=== PATIENT | female | born 1950 | race Caucasian/White ===

== ENCOUNTER 2019-01-15 11:02 | Emergency (ER) | payer MEDICARE, OTHER ==
--- NOTE | 2019-01-15 12:30 | ED Physician Documentation ---
History of Present Illness - Stated complaint Stated Complaint: CHEST PRESSURE, SOA, NO APPETITE, WEIGHT LOSS - Chief complaint Chief Complaint: Cardiac - History obtained from History obtained from: Patient, Family - History of Present Illness Pain level max: 5 Pain level now: 3 Improved by: nothing Worsened by: nothing - Additonal information Additional information: 68-year-old female with a history of depression and anxiety, recently felt that her Cymbalta was not working so her doctor changed her to Prozac 2 weeks ago. Shortly after this her granddaughter killed herself in an overdose. She returned home from the 2 days ago and since that time has felt a heaviness and pressure on her chest. She does not have any difficulty breathing. Nothing makes it better or worse. Has not had any leg pain. Does not smoke. Review of Systems Ten Systems: 10 systems reviewed and negative Constitutional: denies: Fever, Chills Nose: denies: Rhinorrhea / runny nose, Congestion Respiratory: denies: Cough GI: denies: Nausea, Vomiting Skin: denies: Rash Musculoskeletal: denies: Neck pain, Back pain Neurologic: denies: Focal weakness, Numbness, Headache Psychiatric: reports: Depressed, Anxiety. denies: Suicidal, Homicidal PD PAST MEDICAL HISTORY - Past Medical History Past Medical History: Yes Psych: Depression, Anxiety Other Past Medical History: RLS - Present Medications Home Medications: Ambulatory Orders Medication Instructions Recorded Confirmed Fluoxetine HCl [Prozac] 40 mg PO 01/15/19 Gabapentin [Neurontin] 100 mg PO TID 01/15/19 01/15/19 LORazepam [Ativan] 0.5 mg PO Q8H PRN #7 tablet 01/15/19 Meloxicam 7.5 mg PO 01/15/19 Zolpidem [Ambien] 5 mg PO 01/15/19 - Allergies Allergies/Adverse Reactions: Allergies Allergy/AdvReac Type Severity Reaction Status Date / Time No Known Drug Allergies Allergy Verified 01/15/19 11:15 - Social History Does the pt smoke?: No Smoking Status: Never smoker PD ED PE NORMAL - Vitals Vital signs reviewed: Yes - General General: Alert and oriented X 3, No acute distress, Well developed/nourished - HEENT HEENT: PERRL, Moist mucous membranes, Pharynx benign - Neck Neck: Supple, no meningeal sign - Cardiac Cardiac: RRR, Strong equal pulses - Respiratory Respiratory: No respiratory distress, Clear bilaterally - Abdomen Abdomen: Soft, Non tender, Non distended - Derm Derm: Warm and dry, No rash - Extremities Extremities: No edema, No calf tenderness / cord - Neuro Neuro: Alert and oriented X 3 - Psych Psych: Normal mood, Normal affect Results - Vitals Vitals: Vital Signs - 24 hr 01/15/19 01/15/19 01/15/19 11:13 13:15 13:28 Temperature 36.8 C 36.5 C Heart Rate 110 H 89 87 Respiratory 18 17 18 Rate Blood Pressure 147/80 H 132/107 H 132/107 H O2 Saturation 100 99 97 01/15/19 14:23 Temperature 36.5 C Heart Rate 96 Respiratory 16 Rate Blood Pressure 140/79 H O2 Saturation 97 Oxygen O2 Source Room air - EKG (time done) 1114 Rate: Rate (enter#) (106) Rhythm: Sinus tachycardia, Other (PVCs frequent) [place]: Normal Intervals: Normal MS QRS: Normal Ischemia: Normal ST segments - Labs Labs: Laboratory Tests 01/15/19 01/15/19 01/15/19 12:20 12:20 12:20 WBC 8.3 RBC 4.84 Hgb 14.8 Hct 41.7 MCV 86.2 MCH 30.5 MCHC 35.4 RDW 13.3 Plt Count 351 MPV 6.8 L Neut # (Auto) 6.9 H Lymph # (Auto) 1.0 L [place] # (Auto) 0.4 Eos # (Auto) 0.0 Baso # (Auto) 0.1 Absolute Nucleated RBC 0.00 Nucleated RBC % 0.0 D-Dimer Sodium 134 L Potassium 3.7 Chloride 96 L Carbon Dioxide 26 Anion Gap 12.0 BUN 10 Creatinine 0.6 Estimated GFR (MDRD) 100 Glucose 123 H Calcium 9.6 Phosphorus 3.3 Magnesium 2.1 Total Bilirubin 1.0 AST 24 ALT 15 Alkaline Phosphatase 65 Troponin I < 0.04 Total Protein 7.8 Albumin 4.6 Globulin 3.2 Albumin/Globulin Ratio 1.4 Lipase 36 TSH Salicylates < 6.0 Acetaminophen 28 Ethyl Alcohol < 5.0 01/15/19 01/15/19 12:20 12:20 WBC RBC Hgb Hct MCV MCH MCHC RDW Plt Count MPV Neut # (Auto) Lymph # (Auto) [place] # (Auto) Eos # (Auto) Baso # (Auto) Absolute Nucleated RBC Nucleated RBC % D-Dimer 313.8 H Sodium Potassium Chloride Carbon Dioxide Anion Gap BUN Creatinine Estimated GFR (MDRD) Glucose Calcium Phosphorus Magnesium Total Bilirubin AST ALT Alkaline Phosphatase Troponin I Total Protein Albumin Globulin Albumin/Globulin Ratio Lipase TSH 2.30 Salicylates Acetaminophen Ethyl Alcohol - Rads (name of study) cxr Radiology: Prelim report reviewed, EMP read contemporaneously, See rad report (No acute abnormality) PD MEDICAL DECISION MAKING - ED course Complexity details: reviewed results, re-evaluated patient, considered differential (No ST elevation MT, no aortic dissection, no PE, no tension pneumothorax, no aortic aneurysm), d/w patient, d/w family, d/w [facility] consultant ED course: 68-year-old female presents to the emergency department with atypical chest pain. This been constant for the past 2-3 days. Seems to be associated with grief. Symptoms resolved with Ativan. She did have recent travel, but her d- dimer is less than her age-adjusted cut off and has no calf tenderness. No pleuritic chest pain. No hypoxia. Social work was consulted and the patient was given resources for outpatient counseling. She is comfortable with this plan. Not suicidal or homicidal. Patient and family counseled regarding signs and symptoms for which I believe and urgent re-evaluation would be necessary. Patient with good understanding of and agreement to plan and is comfortable going home at this time This document was made in part using voice recognition software. While efforts are made to proofread this document, sound alike and grammatical errors may occur. Departure - Departure Disposition: 01 Home, Self Care Clinical Impression: Depression Qualifiers: Depression Type: unspecified Qualified Code(s): F32.9 - Major depressive disorder, single episode, unspecified Condition: Good Instructions: ED Depression Follow-Up: Isael Dewey MD [Primary Care Provider] - 01/17/19 Prescriptions: LORazepam [Ativan] 0.5 mg PO Q8H PRN #7 tablet PRN Reason: Anxiety Comments: Follow-up with your doctor for further care. Have him refer you to a psychologist and a psychiatrist. Return if you worsen crisis Line and is available to talk to someone [email or web address] is also available to chat with someone online if you prefer. There are also many resources on this website and apps for your phone to help with your mental health You can also text the word START to [phone] to chat with someome via text. Discharge Date/Time: 01/15/19 14:23
[2019-01-15] MEDS ORDERED: LORazepam 2 MG/ML VIAL IVP STA (12:32)
[2019-01-15 12:36] LABS: BASOPHILS # (AUTO) 0.1 10^3/uL (0.0-0.1); BASOPHILS % (AUTO) 0.9 %; HGB - HEMOGLOBIN 14.8 g/dL (12.0-16.0); MEAN CORPUSCULAR HEMOGLOBIN 30.5 pg (27.0-31.0); MEAN CORPUSCULAR HGB CONC 35.4 g/dL (32.0-36.0); MEAN CORPUSCULAR VOLUME 86.2 fL (81.0-99.0); MEAN PLATELET VOLUME 6.8 fL (7.9-10.8); MONOCYTES # (AUTO) 0.4 10^3/uL (0.0-1.0); MONOCYTES % (AUTO) 4.2 %; NEUTROPHILS # (AUTO) 6.9 10^3/uL (1.5-6.6); NEUTROPHILS % (AUTO) 82.9 %; PLT - PLATELET COUNT 351 10^3/uL (130-450); RED BLOOD COUNT 4.84 10^6/uL (4.20-5.40); RED CELL DISTRIBUTION WIDTH 13.3 % (12.0-15.0); WHITE BLOOD COUNT 8.3 x10^3/uL (4.8-10.8)
--- NOTE | 2019-01-15 12:51 | XRAY Report ---
Reason: Chest Pain Procedure Date: 01/15/2019 Accession Number: [id number] / [id number] Procedure: XR - Chest 1 View X-Ray CPT Code: 71969 FULL RESULT: EXAM: CHEST RADIOGRAPHY EXAM DATE: 01/15/2019 12:28 PM. CLINICAL HISTORY: Chest Pain. COMPARISON: None. TECHNIQUE: 1 view. FINDINGS: Lungs/Pleura: No focal opacities evident. No pleural effusion. No pneumothorax. Mediastinum: Within exam limitations, the cardiomediastinal contour is normal. Other: None. IMPRESSION: No focal consolidation. RADIA
[2019-01-15 12:58] LABS: ACETAMINOPHEN 28 ug/mL (10-30); ALBUMIN 4.6 g/dL (3.2-5.5); ALBUMIN/GLOBULIN RATIO 1.4 (1.0-2.2); ALKALINE PHOSPHATASE 65 IU/L (42-121); ALT ALANINE AMINOTRANSFERASE 15 IU/L (10-60); AST ASPARTATE AMINOTRANSFERASE 24 IU/L (10-42); BUN - BLOOD UREA NITROGEN 10 mg/dL (6-20); CALCIUM 9.6 mg/dL (8.5-10.3); CARBON DIOXIDE - CO2 26 mmol/L (21-32); CHLORIDE 96 mmol/L (101-111); CREATININE 0.6 mg/dL (0.4-1.0); GFR - MDRD 100 (>89); GLUCOSE 123 mg/dL (70-100); LIPASE 36 U/L (22-51); MAGNESIUM 2.1 mg/dL (1.7-2.8); PHOSPHORUS 3.3 mg/dL (2.5-4.6); SALICYLATE < 6.0 mg/dL; SODIUM 134 mmol/L (135-145); TOTAL PROTEIN 7.8 g/dL (6.7-8.2)
[2019-01-15 14:25] VITALS: BP 140/79
== END 2019-01-15 14:23 | disposition home or self-care (01) ==
LOC: ED 11:02
DX: F32.9 Major depressive disorder, single episode, unspecified (principal); Z79.899 Other long term (current) drug therapy
CPT/HCPCS: 36415; 71045; 80053; 83690; 83735; 84100; 84443; 84484; 85025; 85379; 93005; 96374; 99284; J2060; 80307; 80320; 80329

== ENCOUNTER 2019-08-31 09:52 | Outpatient (CLI) | payer MEDICARE, OTHER ==
--- NOTE | 2019-08-31 12:18 | Mammography Report ---
Reason: ROUTINE MAMMO Procedure Date: 08/31/2019 Accession Number: [id number] / [id number] Procedure: MGS - Screening Mammo Dig Bilat CPT Code: FULL RESULT: EXAM: Screening Mammo Dig Bilat DATE: 08/31/2019 10:17 AM CLINICAL HISTORY: Routine screening. No reported personal history of breast cancer. Family history breast cancer in an aunt age 70 and a cousin age 50. TECHNIQUE: (B) - Bilateral CC and MLO views were obtained. COMPARISON: 03/04/2016 PARENCHYMAL PATTERN: (A) - The breasts demonstrate scattered fibroglandular densities bilaterally. FINDINGS: Bilateral breasts: There are no suspicious masses, calcifications, or areas of distortion. IMPRESSION: Negative examination. BI-RADS category 1. RECOMMENDATION: (ANNUAL) - Recommend routine annual screening mammography. BI-RADS CATEGORY: (1) - Negative. STANDARD QUALIFYING STATEMENTS: 1. This examination was reviewed with the aid of Computer-Aided Detection (CAD). 2. A negative or benign imaging report should not preclude biopsy if clinically suspicious findings are present. 3. Dense breasts may obscure an underlying neoplasm. 4. This examination was reviewed without the aid of 3D breast imaging (tomosynthesis).
== END 2019-08-31 09:53 | disposition home or self-care (01) ==
LOC: DI.S 09:52
PROVIDERS: ATTEND Family Medicine
DX: Z12.31 Encounter for screening mammogram for malignant neoplasm of breast (principal)
CPT/HCPCS: 77067

== ENCOUNTER 2019-12-15 07:35 | Day surgery (SDC) | payer MEDICARE, OTHER ==
[~2019-12-15 07:35] MED LIST: BRIMONIDINE 0.2% OPHTH DROPS 5 ML ONE; BSS/LIDOCAINE/EPINEPHRINE 1 ML SYRINGE ONE; CYCLOPENTOLATE 1% OPHTH DROPS 2 ML ONE; KETOROLAC 0.45% OPHTH DROPS ONE; PHENYLEPHRINE 2.5% OPHTH 2 ML DROPS ONE; PROPARACAINE 0.5% OPHTH DROPS 15 ML ONE; TIMOLOL 0.5% OPHTH DROPS ONE; TRIAMCIN/MOXIFLOX OPHTHALMIC 0.6 ML VIAL IO ONE; VANCOMYCIN OPHTHALMI 8MG/0.8ML 8 MG/0.8 ML SYRINGE IO ONE
[2019-12-15] MEDS ORDERED: MIDAZOLAM 2 MG/2 ML VIAL IVP ONE (07:36)
[2019-12-15] MEDS ORDERED: LACTATED RINGERS 500 ML IV ONE ×2 (07:42→09:23)
[2019-12-15] MEDS ORDERED: CYCLOPENTOLATE 1% OPHTH DROPS 2 ML LEFTEYE ONE (07:55)
[2019-12-15] MEDS ORDERED: PROPARACAINE 0.5% OPHTH DROPS 15 ML LEFTEYE ONE ×2 (07:55→09:08)
[2019-12-15] MEDS ORDERED: PHENYLEPHRINE 2.5% OPHTH 2 ML DROPS LEFTEYE ONE (07:55)
[2019-12-15] MEDS ORDERED: KETOROLAC 0.45% OPHTH DROPS LEFTEYE ONE (07:55)
--- NOTE | 2019-12-15 08:57 | ANESTHESIA ---
Pre-Anesthesia VS, & Labs - Diagnosis Left senile combined cataract - Procedure Left phaco with IOL implant Vital Signs: Temp Pulse Resp BP Pulse Ox 36.6 C 90 16 149/88 H 99 12/15/19 07:51 12/15/19 07:51 12/15/19 07:51 12/15/19 07:51 12/15/19 07:51 Height 5 ft 1 in Weight (kg) 59.8 kg Body Mass Index 21.4 - NPO >8 hours - Is Patient ?: Not Applicable - Lab Results Lab results reviewed: No Home Medications and Allergies Home Medications: Ambulatory Orders Duloxetine HCl [Cymbalta] 12/14/19 Fluoxetine HCl [Prozac] 40 mg PO 01/15/19 Gabapentin [Neurontin] 100 mg PO TID 01/15/19 Meloxicam 7.5 mg PO 01/15/19 Zolpidem [Ambien] 5 mg PO 01/15/19 Duloxetine HCl [Cymbalta] 12/14/19 Allergies/Adverse Reactions: Allergies Allergy/AdvReac Type Severity Reaction Status Date / Time No Known Drug Allergies Allergy Verified 01/15/19 11:15 Anes History & Medical History - Anesthetic History Anesthesia Complications: reports: No previous complications Family history of Anesthesia Complications: Denies Family history of Malignant Hyperthermia: Denies - Medical History Cardiovascular: reports: Hypertension Pulmonary: reports: None Gastrointestinal: reports: None Urinary: reports: None Neuro: reports: None Musculoskeletal: reports: None Endocrine/Autoimmune: reports: None Blood Disorders: reports: None Skin: reports: Herpes zoster Smoking Status: Current every day smoker Psychosocial: reports: No issues indicated - Surgical History General: Appendectomy Gynecologic: section Orthopedic: Carpal Tunnel surgery Exam General: Alert, Oriented x3, Cooperative Dental: WNL Mouth Opening: Greater than 4 Fingerbreadths Neck Mobility: Normal Mallampati classification: I Thyromental Distance: greater than 6 cm Plan Anesthesia Type: MAC Consent for Procedure(s) Verified and Reviewed: Yes Code Status: Attempt Resuscitation ASA classification: 2-Mild systemic disease Is this case an emergency?: No
[2019-12-15] MEDS ORDERED: EPINEPHrine 1 MG/ML AMP IVP ONE (09:12)
[2019-12-15] MEDS ORDERED: BRIMONIDINE 0.2% OPHTH DROPS 5 ML OPTH ONE (09:12)
[2019-12-15] MEDS ORDERED: TIMOLOL 0.5% OPHTH DROPS OPTH ONE (09:12)
[2019-12-15] MEDS ORDERED: CHONDR SULF/HYALURONATE SYRINGE IO ONE (09:12)
[2019-12-15] MEDS ORDERED: BSS/LIDOCAINE/EPINEPHRINE 1 ML SYRINGE IO ONE (09:13)
[2019-12-15 09:49] VITALS: BP 106/64
--- NOTE | 2019-12-15 10:48 | OPERATIVE REPORT ---
DATE OF SERVICE: 12/15/2019 Physician: Albert Wyman MD PREOPERATIVE DIAGNOSIS: Visually significant cataract, left eye. This was her first cataract surger y. POSTOPERATIVE DIAGNOSIS: Visually significant cataract, left eye. This was her first cataract surge ry. DESCRIPTION OF PROCEDURE: Phacoemulsification with posterior chamber intraocular lens implant, left eye. SURGEON: Albert Wyman MD ANESTHESIA: Monitored anesthesia care. COMPLICATIONS: None. OPERATIVE INDICATIONS: This is a 69-year-old woman with progressive vision loss in the left eye due to 4+ nuclear sclerotic cataract. Best corrected visual acuity was 20/50, with glare to 20/400 in th e left eye. She was consented at length concerning risks and benefits of cataract surgery, after whi ch she expressed a desire to proceed with surgery. OPERATIVE PROCEDURE: Patient was taken to OR #3 and placed under monitored anesthesia care. Surgica l timeout was conducted confirming correct patient, correct procedure, and correct surgical site. e was given topical anesthesia, then prepped and draped in the usual sterile fashion. The eye was en tered at the 6 and 3 o'clock positions. Intracameral Shugarcaine was injected into the anterior janelle kathy, followed by Viscoat. A continuous-tear curvilinear capsulorrhexis was performed. The nucleus w as hydrodissected and phacoemulsified. The cortex was evacuated using automated infusion and aspirat ion. Provisc was injected in the capsular bag, and a 21.5 diopter intraocular lens inserted in the b ag. I and A was used to evacuate the viscoelastic materials. The eye was inflated to physiologic pr essure using balanced salt solution and found to be watertight. Approximately 0.25 mL of a mixture o f triamcinolone and moxifloxacin was injected transsclerally into the vitreous in the inferotemporal quadrant. An additional 0.55 mL of a mixture of triamcinolone, moxifloxacin and vancomycin was injec emelina subconjunctivally in the superior quadrant for infection and inflammation prophylaxis. Wound int egrity was checked with Weck-Dixie sponges. Patient was taken from the operating room in good conditio n and given postoperative instructions. TD: 12/15/2019 09:26
== END 2019-12-15 07:36 | disposition home or self-care (01) ==
LOC: SDS 07:35
PROVIDERS: ATTEND Ophthalmology
PROC: 08RK3JZ Replacement of Left Lens with Synthetic Substitute, Percutaneous Approach (ICD-10-PCS; principal; 2019-12-15 09:00)
DX: H25.12 Age-related nuclear cataract, left eye (principal); I10 Essential (primary) hypertension; F17.200 Nicotine dependence, unspecified, uncomplicated
CPT/HCPCS: 66984; A9270; J3490; V2632

== ENCOUNTER 2020-01-05 08:04 | Day surgery (SDC) | payer MEDICARE, OTHER ==
[~2020-01-05 08:04] MED LIST changes: -BRIMONIDINE 0.2% OPHTH DROPS 5 ML ONE; -BSS/LIDOCAINE/EPINEPHRINE 1 ML SYRINGE ONE; -TIMOLOL 0.5% OPHTH DROPS ONE; -TRIAMCIN/MOXIFLOX OPHTHALMIC 0.6 ML VIAL IO ONE; -VANCOMYCIN OPHTHALMI 8MG/0.8ML 8 MG/0.8 ML SYRINGE IO ONE
--- NOTE | 2020-01-05 09:24 | ANESTHESIA ---
Pre-Anesthesia VS, & Labs - Diagnosis R nuclear sclerotic cataract - Procedure R extraction cataract w/IOL Height 5 ft 1 in Body Mass Index 21.4 - NPO >8 hours - Is Patient ?: No Home Medications and Allergies Fluoxetine HCl [Prozac] 40 mg PO 01/15/19 Gabapentin [Neurontin] 100 mg PO TID 01/15/19 Meloxicam 7.5 mg PO 01/15/19 Zolpidem [Ambien] 5 mg PO 01/15/19 Duloxetine HCl [Cymbalta] 12/14/19 Allergies/Adverse Reactions: Allergies Allergy/AdvReac Type Severity Reaction Status Date / Time Penicillins AdvReac Rash Verified 01/05/20 09:46 Anes History & Medical History - Anesthetic History Anesthesia Complications: reports: No previous complications Family history of Anesthesia Complications: Denies Family history of Malignant Hyperthermia: Denies - Medical History Cardiovascular: reports: Hypertension Pulmonary: reports: None Gastrointestinal: reports: None Urinary: reports: None Neuro: reports: None Musculoskeletal: reports: None Endocrine/Autoimmune: reports: None Blood Disorders: reports: None Skin: reports: Herpes zoster Smoking Status: Current every day smoker Psychosocial: reports: Anxiolytic (daily Ativan) - Surgical History General: Appendectomy, Colonoscopy Gynecologic: section Orthopedic: Carpal Tunnel surgery Exam General: Alert, Oriented x3, Cooperative Dental: WNL Mouth Openin Fingerbreadth Neck Mobility: Normal Mallampati classification: II Thyromental Distance: 4-6 cm Respiratory: Lungs clear, Normal breath sounds, No respiratory distress Cardiovascular: Regular rate Mental/Cognitive Status: Alert/Oriented X3, Normal for patient Cognitive Status: Within normal limits Plan Anesthesia Type: General (backup), MAC (pt stated she would like more medication than what she had for L cataract (Versed 4mg)) Consent for Procedure(s) Verified and Reviewed: Yes Code Status: Attempt Resuscitation ASA classification: 2-Mild systemic disease Is this case an emergency?: No
[2020-01-05] MEDS ORDERED: LACTATED RINGERS 500 ML IV ONE (10:00)
[2020-01-05] MEDS ORDERED: MIDAZOLAM 2 MG/2 ML VIAL IVP ONE (10:30)
[2020-01-05] MEDS ORDERED: fentaNYL 100 MCG/2 ML VIAL IVP ONE (10:30)
[2020-01-05] MEDS ORDERED: EPINEPHrine 1 MG/ML AMP IVP ONE (10:40)
[2020-01-05] MEDS ORDERED: BRIMONIDINE 0.2% OPHTH DROPS 5 ML OPTH ONE (10:40)
[2020-01-05] MEDS ORDERED: BSS/LIDOCAINE/EPINEPHRINE 1 ML SYRINGE IO ONE (10:41)
[2020-01-05] MEDS ORDERED: TIMOLOL 0.5% OPHTH DROPS OPTH ONE (10:41)
[2020-01-05] MEDS ORDERED: CHONDR SULF/HYALURONATE SYRINGE IO ONE (10:41)
[2020-01-05] MEDS ORDERED: VANCOMYCIN OPHTHALMI 8MG/0.8ML 8 MG/0.8 ML SYRINGE IO ONE (10:42)
[2020-01-05] MEDS ORDERED: TRIAMCIN/MOXIFLOX OPHTHALMIC 0.6 ML VIAL IO ONE ×2 (10:42→14:56)
[2020-01-05] MEDS ORDERED: PROPARACAINE 0.5% OPHTH DROPS 15 ML RIGHTEYE ONE (10:42)
[2020-01-05 11:14] VITALS: BP 124/65
--- NOTE | 2020-01-05 12:53 | OPERATIVE REPORT ---
DATE OF SERVICE: 01/05/2020 Physician: Albert Wyman MD PREOPERATIVE DIAGNOSIS: Visually significant cataract, right eye. Cataract surgery was performed on the left eye on 12/15/2019. POSTOPERATIVE DIAGNOSIS: Visually significant cataract, right eye. Cataract surgery was performed o n the left eye on 12/15/2019. PROCEDURE: Phacoemulsification with posterior chamber intraocular lens implant, right eye. SURGEON: Albert Wyman MD ANESTHESIA: Monitored anesthesia care. COMPLICATIONS: None. OPERATIVE INDICATIONS: This is a 69-year-old woman with progressive vision loss in the right eye due to 4+ nuclear sclerotic cataract. Best corrected visual acuity was 20/30, with glare to 20/250 in t he right eye. Indications for surgery were overall decrease in vision, difficulty seeing words on a computer screen, difficulty reading, difficulty seeing words, closed caption or game scores on TV, di fficulty seeing street signs, difficulty driving in low light or at night, difficulty driving at [facility] t because of headlights from other vehicles, and difficulty with glare or bright lights in any situat ion. She was consented at length concerning risks and benefits of cataract surgery, after which she expressed a desire to proceed with surgery. OPERATIVE PROCEDURE: The patient was taken to OR number 3 and placed under monitored anesthesia care . A surgical timeout was conducted confirming correct patient, correct procedure, and correct surgic al site. She was given topical anesthesia, and prepped and draped in the usual sterile fashion. The eye was entered at the 12 and 9 o'clock positions. Intracameral Shugarcaine was injected into the a nterior chamber, followed by Viscoat. A continuous-tear curvilinear capsulorrhexis was performed. T he nucleus was hydrodissected and phacoemulsified. The cortex was evacuated using automated infusion and aspiration. Provisc was injected in the capsular bag, and a 19.5 diopter intraocular lens inser emelina in the bag. Infusion and aspiration was used to evacuate the viscoelastic materials. The eye wa s inflated to physiologic pressure using balanced salt solution and found to be watertight. Approxim ately 0.25 mL of a mixture of triamcinolone and moxifloxacin was injected and trans sclerally into th e vitreous in inferotemporal quadrant. An additional 0.55 mL of a mixture of triamcinolone, moxiflox acin and vancomycin was injected subconjunctivally in the superior quadrant for infection and inflamm ation prophylaxis. Wound integrity was checked with Weck-Dixie sponges. The patient was taken from [facility] operating room in good condition and given postoperative instructions. TD: 01/05/2020 10:55
[2020-01-05] MEDS ORDERED: BRIMONIDINE 0.2% OPHTH DROPS 5 ML ONE (14:56)
== END 2020-01-05 08:05 | disposition home or self-care (01) ==
LOC: SDS 08:04
PROVIDERS: ATTEND Ophthalmology
DX: H25.11 Age-related nuclear cataract, right eye (principal); Z98.42 Cataract extraction status, left eye; I10 Essential (primary) hypertension; F17.210 Nicotine dependence, cigarettes, uncomplicated
CPT/HCPCS: 66984; A9270; J3490; V2632

== ENCOUNTER 2020-03-07 16:49 | Emergency (ER) | payer MEDICARE, OTHER ==
[2020-03-07 17:33] LABS: MUDS CUTOFF CONCENTRATIONS CUTOFF CONC BELOW:
[2020-03-07 17:35] LABS: BILIRUBIN,URINE NEGATIVE (NEGATIVE); GLUCOSE, URINE (UA) NEGATIVE (NEGATIVE); KETONES,URINE (UA) NEGATIVE (NEGATIVE); LEUKOCYTE ESTERASE, URINE NEGATIVE (NEGATIVE); NITRITE,URINE NEGATIVE (NEGATIVE); OCCULT BLOOD,URINE TRACE-INTA (NEGATIVE); PROTEIN,URINE NEGATIVE (NEGATIVE); UROBILINOGEN,URINE 0.2 (NORMAL) E.U./dL (NORMAL)
[2020-03-07 17:36] LABS: CLARITY,URINE CLEAR (CLEAR)
[2020-03-07 17:40] LABS: BASOPHILS # (AUTO) 0.1 10^3/uL (0.0-0.1); BASOPHILS % (AUTO) 0.7 %; EOSINOPHILS # (AUTO) 0.3 10^3/uL (0.0-0.7); EOSINOPHILS % (AUTO) 3.5 %; HGB - HEMOGLOBIN 13.6 g/dL (12.0-16.0); LYMPHOCYTES # (AUTO) 2.3 10^3/uL (1.5-3.5); LYMPHOCYTES % (AUTO) 32.2 %; MEAN CORPUSCULAR HEMOGLOBIN 28.9 pg (27.0-31.0); MEAN CORPUSCULAR HGB CONC 32.3 g/dL (32.0-36.0); MEAN CORPUSCULAR VOLUME 89.6 fL (81.0-99.0); MEAN PLATELET VOLUME 8.4 fL (7.9-10.8); MONOCYTES # (AUTO) 0.6 10^3/uL (0.0-1.0); MONOCYTES % (AUTO) 8.5 %; NEUTROPHILS # (AUTO) 3.8 10^3/uL (1.5-6.6); NEUTROPHILS % (AUTO) 54.4 %; PLT - PLATELET COUNT 353 10^3/uL (130-450); RED CELL DISTRIBUTION WIDTH 12.6 % (12.0-15.0); WHITE BLOOD COUNT 7.1 x10^3/uL (4.8-10.8)
--- NOTE | 2020-03-07 17:40 | ED Physician Documentation ---
PD HPI MHE - Stated complaint Stated Complaint: TIRED - Chief complaint Chief Complaint: MHE - History obtained from History obtained from: Patient - History of Present Illness Primary symptom: Other (69-year-old woman brought in by private vehicle. Reportedly for the last 6 days has had intermittent hallucinations where she sees her mother. She is also been falling a lot without injury. She complains of joint aches. Denies suicidal or homicidal ideation. Has been sleeping poorly and seems disoriented.) Review of Systems Ten Systems: 10 systems reviewed and negative Constitutional: denies: Fever, Chills Throat: denies: Sore throat Cardiac: denies: Chest pain / pressure, Palpitations Respiratory: denies: Dyspnea, Cough GI: denies: Abdominal Pain, Nausea, Vomiting PD PAST MEDICAL HISTORY - Past Medical History Cardiovascular: Hypertension Respiratory: None Neuro: None Endocrine/Autoimmune: None GI: None : None HEENT: Other Psych: Depression, Anxiety, Panic attacks Musculoskeletal: None Derm: Herpes zoster - Past Surgical History General: Appendectomy, Colonoscopy Ortho: 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 - Present Medications Home Medications: Ambulatory Orders Medication Instructions Recorded Confirmed Fluoxetine HCl [Prozac] 40 mg PO DAILY 01/15/19 01/05/20 Gabapentin [Neurontin] 100 mg PO TID 01/15/19 01/05/20 LORazepam [Ativan] 0.5 mg PO Q8H PRN #7 tablet 01/15/19 01/05/20 Meloxicam 7.5 mg PO DAILY 01/15/19 01/05/20 Zolpidem [Ambien] 5 mg PO DAILY 01/15/19 01/05/20 Duloxetine HCl [Cymbalta] 60 mg PO DAILY 12/14/19 01/05/20 - Allergies Allergies/Adverse Reactions: Allergies Allergy/AdvReac Type Severity Reaction Status Date / Time Penicillins AdvReac Rash Verified 03/07/20 17:03 - Social History Does the pt smoke?: No Smoking Status: Current every day smoker PD ED PE NORMAL - Vitals Vital signs reviewed: Yes - General General: No acute distress, Other (She is alert and seems to be a fairly cogent historian but when asked her the date she says it is June 12, 2021.) - HEENT HEENT: PERRL, EOMI, Other (Dry mucous membranes) - Neck Neck: Supple, no meningeal sign, No bony TTP - Cardiac Cardiac: RRR, No murmur - Respiratory Respiratory: No respiratory distress, Clear bilaterally - Abdomen Abdomen: Normal bowel sounds, Soft, Non tender - Back Back: No CVA TTP, No spinal TTP - Derm Derm: Normal color, Warm and dry - Extremities Extremities: No deformity, No tenderness to palpate, No edema, No calf tenderness / cord - 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, No motor deficit, No sensory deficit Eye Opening: Spontaneous Motor: Obeys Commands Verbal: Confused GCS Score: 14 - Psych Psych: Normal mood, Normal affect Results - Vitals Vitals: Vital Signs - 24 hr 03/07/20 03/08/20 03/08/20 17:03 02:22 08:10 Temperature 36.6 C Heart Rate 77 76 72 Respiratory 18 15 16 Rate Blood Pressure 137/63 H 122/69 116/64 O2 Saturation 97 96 96 Oxygen O2 Source Room air - Labs Labs: Laboratory Tests 03/07/20 03/07/20 03/07/20 17:20 17:33 17:33 WBC 7.1 RBC 4.70 Hgb 13.6 Hct 42.1 MCV 89.6 MCH 28.9 MCHC 32.3 RDW 12.6 Plt Count 353 MPV 8.4 Neut # (Auto) 3.8 Lymph # (Auto) 2.3 [place] # (Auto) 0.6 Eos # (Auto) 0.3 Baso # (Auto) 0.1 Absolute Nucleated RBC 0.00 Nucleated RBC % 0.0 Sodium 135 Potassium 3.7 Chloride 99 L Carbon Dioxide 29 Anion Gap 7.0 BUN 17 Creatinine 0.8 Estimated GFR (MDRD) 71 L Glucose 95 Calcium 9.1 Total Bilirubin 0.2 AST 17 ALT 13 Alkaline Phosphatase 54 Total Protein 7.9 Albumin 4.4 Globulin 3.5 Albumin/Globulin Ratio 1.3 Lipase 34 TSH Urine Color YELLOW Urine Clarity CLEAR Urine pH 7.0 Ur Specific Rudolph 1.010 Urine Protein NEGATIVE Urine Glucose (UA) NEGATIVE Urine Ketones NEGATIVE Urine Occult Blood TRACE-INTA Urine Nitrite NEGATIVE Urine Bilirubin NEGATIVE Urine Urobilinogen 0.2 (NORMAL) Ur Leukocyte Esterase NEGATIVE Ur Microscopic Review NOT INDICATED Urine Culture Comments NOT INDICATED Salicylates < 6.0 Urine Opiates Screen POSITIVE H Ur Oxycodone Screen NEGATIVE Urine Methadone Screen NEGATIVE Ur Propoxyphene Screen NEGATIVE Acetaminophen < 10 L Ur Barbiturates Screen NEGATIVE Ur Tricyclics Screen NEGATIVE Ur Phencyclidine Scrn NEGATIVE Ur Amphetamine Screen NEGATIVE U Methamphetamines Scrn NEGATIVE U Benzodiazepines Scrn POSITIVE H Urine Cocaine Screen NEGATIVE U Cannabinoids Screen NEGATIVE Ethyl Alcohol < 5.0 03/07/20 17:33 WBC RBC Hgb Hct MCV MCH MCHC RDW Plt Count MPV Neut # (Auto) Lymph # (Auto) [place] # (Auto) Eos # (Auto) Baso # (Auto) Absolute Nucleated RBC Nucleated RBC % Sodium Potassium Chloride Carbon Dioxide Anion Gap BUN Creatinine Estimated GFR (MDRD) Glucose Calcium Total Bilirubin AST ALT Alkaline Phosphatase Total Protein Albumin Globulin Albumin/Globulin Ratio Lipase TSH 3.77 Urine Color Urine Clarity Urine pH Ur Specific Rudolph Urine Protein Urine Glucose (UA) Urine Ketones Urine Occult Blood Urine Nitrite Urine Bilirubin Urine Urobilinogen Ur Leukocyte Esterase Ur Microscopic Review Urine Culture Comments Salicylates Urine Opiates Screen Ur Oxycodone Screen Urine Methadone Screen Ur Propoxyphene Screen Acetaminophen Ur Barbiturates Screen Ur Tricyclics Screen Ur Phencyclidine Scrn Ur Amphetamine Screen U Methamphetamines Scrn U Benzodiazepines Scrn Urine Cocaine Screen U Cannabinoids Screen Ethyl Alcohol - Rads (name of study) CT Head Radiology: EMP read contemporaneously (normal) PD MEDICAL DECISION MAKING - ED course ED course: Further history obtained from the . About 2 months ago she saw a psychiatrist in [place] for anxiety and was started on new medications. Since then she has been confused, hallucinating, basically nonfunctional, sleeping all the time. He does not feel like he can manage her at home and would like us to pursue hospitalization for medical management. The patient though is resistant to treatment and confused, as such the DCR was called for potential mcc Departure - Departure Disposition: 65 Psych Hosp/Unit DC/Xfer Clinical Impression: Anxiety, Hallucinations, Substance abuse or dependence Depression Qualifiers: Depression Type: major depressive disorder Major depression recurrence: recurrent Active/Remission status: currently active Major depression episode severity: severe Psychotic features: with psychotic features Qualified Code(s): F33.3 - Major depressive disorder, recurrent, severe with psychotic symptoms Condition: Stable Discharge Date/Time: 03/08/20 08:45
[2020-03-07 17:48] LABS: AMPHETAMINE SCREEN,URINE NEGATIVE (NEGATIVE); BENZODIAZEPINES SCREEN, URINE POSITIVE (NEGATIVE); COCAINE SCREEN URINE NEGATIVE (NEGATIVE); METHADONE SCREEN, URINE NEGATIVE (NEGATIVE); METHAMPHETAMINES SCREEN, URINE NEGATIVE (NEGATIVE); OPIATE SCREEN, URINE POSITIVE (NEGATIVE); OXYCODONE SCREEN, URINE NEGATIVE (NEGATIVE); PROPOXYPHENE SCREEN, URINE NEGATIVE (NEGATIVE); TRICYCLIC ANTIDEPRESSANT,URINE NEGATIVE (NEGATIVE)
[2020-03-07 18:00] LABS: ACETAMINOPHEN < 10 ug/mL (10-30); ALBUMIN 4.4 g/dL (3.2-5.5); ALBUMIN/GLOBULIN RATIO 1.3 (1.0-2.2); ALKALINE PHOSPHATASE 54 IU/L (42-121); ALT ALANINE AMINOTRANSFERASE 13 IU/L (10-60); AST ASPARTATE AMINOTRANSFERASE 17 IU/L (10-42); BILIRUBIN,TOTAL 0.2 mg/dL (0.2-1.0); BUN - BLOOD UREA NITROGEN 17 mg/dL (6-20); CALCIUM 9.1 mg/dL (8.5-10.3); CARBON DIOXIDE - CO2 29 mmol/L (21-32); CHLORIDE 99 mmol/L (101-111); CREATININE 0.8 mg/dL (0.4-1.0); GLUCOSE 95 mg/dL (70-100); LIPASE 34 U/L (22-51); SALICYLATE < 6.0 mg/dL; SODIUM 135 mmol/L (135-145); TOTAL PROTEIN 7.9 g/dL (6.7-8.2)
--- NOTE | 2020-03-07 18:18 | CT Report ---
Reason: falls Procedure Date: 03/07/2020 Accession Number: [id number] / [id number] Procedure: CT - HEAD WO CPT Code: Final Report FULL RESULT: EXAM: CT HEAD EXAM DATE: 03/07/2020 05:49 PM. CLINICAL HISTORY: Falls. Confusion, hallucinations. COMPARISON: None. TECHNIQUE: Multiaxial CT images were obtained from the foramen magnum to the vertex. Reformats: Sagittal and coronal. IV contrast: None. In accordance with CT protocol optimization, one or more of the following dose reduction techniques were utilized for this exam: automated exposure control, adjustment of mA and/or KV based on patient size, or use of iterative reconstructive technique. FINDINGS: Parenchyma: No intraparenchymal hemorrhage. No evidence of mass, midline shift, or CT findings of infarction. French-white differentiation is distinct. Extraaxial Spaces: Normal for age. No subdural or epidural collections identified. Ventricles: Normal in size and position. Sinuses and Orbits: Imaged paranasal sinuses, orbits, and mastoids show no significant abnormality. Bones: No evidence of fracture or calvarial defect. Other: No scalp contusion is identified. IMPRESSION: Normal head CT. RADIA
--- NOTE | 2020-03-07 23:41 | ED Physician Documentation ---
ED Addendum - Addendum Addendum: 03/07/20 23:40 The patient is seen by RERE Vasquez who evaluates the patient. He is concerned about both her substance use and talking with the family, there is reportedly a significant opioid dependence and addiction. The [facility] Hoffman is working towards secure detox for the patient where she can also then get evaluation of her psychiatric problems as well. The patient remained stable here in the ER.
[2020-03-08 08:11] VITALS: BP 116/64
== END 2020-03-08 08:45 ==
LOC: ED 16:49
DX: F33.3 Major depressive disorder, recurrent, severe with psychotic symptoms (principal); F41.9 Anxiety disorder, unspecified; F11.20 Opioid dependence, uncomplicated; I10 Essential (primary) hypertension; F17.200 Nicotine dependence, unspecified, uncomplicated; Z20.828 Contact with and (suspected) exposure to other viral communicable diseases
CPT/HCPCS: 36415; 70450; 80053; 81003; 81599; 83690; 84443; 85025; 99285; U0002; 80306; 80307; 80320; 80329; 81001; 87086